=== PATIENT | female | born 1985 | race Caucasian/White ===

== ENCOUNTER 2018-01-22 14:26 | Emergency (ER) | payer MEDICARE ==
[~2018-01-22] VITALS: Ht 172.7 cm; Wt 73.9 kg
--- OUTSIDE RECORDS SUMMARY | 2018-01-22 14:29 | XMS REPORT ---
Author Organization Unknown Address [address] [place] [address] Phone [phone] Care Team Providers Care Ignition Mechanic Name Role Phone Sole Pierson Unavailable Unavailable Allergies Code Code System Name Reaction Severity Status Onset 845983 RxNorm Bactrim Hives Moderate to Severe Active 5933 RxNorm Iodine Anaphylaxis Severe Active 501715 RxNorm Tegretol Respiratory Distress Moderate to Severe Active 017178 RxNorm Tessalon Perles Anaphylaxis Moderate Active Medications Name Status Start Date Stop Date Ativan 0.5 mg tablet Take 1 tablet twice a day by oral route. Active Not available cyclobenzaprine 10 mg tablet Take 1/2 - 1 tablet po bid PRN and q bedtime may cause drowsiness Active Not available ibuprofen 600 mg tablet Take 1 tablet 3 times a day by oral route with meals. Active Not available inhaler,assist devices,access Active Not available Lexapro 20 mg tablet Take 1 tablet every day by oral route. Active Not available Medrol (Donaldo) 4 mg tablets in a dose pack take as directed Active Not available Zofran Active Not available Problems Name Status Onset Date Source Chronic Anxiety Active 01/10/2018 Diverticulitis Active 01/10/2018 Sciatica Active 01/10/2018 Procedures Notes: Patient indicated no previous surgeries on (01/10/2018) Lab Results None recorded. Past Encounters 01/10/2018 Mixed Anxiety and Depressive Disorder; Chronic Anxiety; Low Back Pain; Body Mass Index 20-24 - Normal; Acute Bronchitis Adia Pierson MD: [id number], [address], [place] [address] , Ph. Social History Smoking Status Former Smoker Vaccine List None recorded. Plan of Care Reminders Provider Appointments None recorded. Lab None recorded. Referral None recorded. Procedures None recorded. Surgeries None recorded. Imaging None recorded. Vitals Height Weight BMI Blood Pressure 5 ft 8 in 160 lbs 24.3 kg/m2 118/67 mm[Hg]
--- OUTSIDE RECORDS SUMMARY | 2018-01-22 14:29 | XMS REPORT | Clinical Summary ---
Author Author [facility] Organization [facility] Address Unknown Phone Unavailable Care Team Providers Care Pitching Coach Name Role Phone Asked, Pcp PCP Unavailable Allergies Active Allergy Reactions Severity Noted Date Comments Benzonatate 05/30/2016 Carbamazepine 05/30/2016 Propranolol Hives 04/15/2017 Sulfamethoxazole-Trimetho 05/30/2016 prim Ketorolac Rash Low 04/16/2017 Current Medications Prescription Sig. Disp. Refills Start End Date Status Date albuterol (VENTOLIN HFA) INHALE TWO (2) PUFF(S) BY Active 90 mcg/actuation inhaler MOUTH EVERY 4 TO 6 HOURS NEEDED. venlafaxine XR TAKE ONE (1) CAPSULE(S) Active (EFFEXOR-XR) 75 MG 24 hr BY MOUTH DAILY. capsule clonAZEPAM (KlonoPIN) 1 2 (two) times a day as Active MG tablet needed. risperiDONE (RisperDAL) 2 TAKE ONE (1) TABLET(S) BY Active MG tablet MOUTH TWICE A DAY. mirtazapine (REMERON) 15 Take 1 tablet by mouth Active MG tablet daily with dinner. metroNIDAZOLE (FLAGYL) Take 1 tablet (500 mg 21 tablet 0 04/16/20 500 MG tablet total) by mouth 3 (three) 17 17 times a day for 7 days. traMADol (ULTRAM) 50 mg Take 1 tablet (50 mg 15 tablet 0 04/16/20 tablet total) by mouth every 6 17 17 (six) hours as needed for moderate pain for up to 15 days. ondansetron (ZOFRAN) 4 MG Take 1 tablet (4 mg 120 tablet 0 04/16/20 05/16/20 tablet total) by mouth every 6 17 17 (six) hours for 30 days. amoxicillin-pot Take 1 tablet by mouth 20 tablet 0 07/28/20 08/07/ 20 clavulanate (AUGMENTIN) every 12 (twelve) hours 17 17 875-125 mg per tablet for 10 days. Active Problems Not on file Encounters Date Type Specialty Care Team Description 05/03/2017 Emergency Emergency Medicine Marcin Sandra Pseudoseizure (Primary - , Dx) 05/04/2017 05/03/2017 Emergency Emergency Medicine Marcin Sandra Diverticulitis of large JrMD Mendy intestine without perforation or abscess without bleeding (Primary Dx) 04/15/2017 Emergency Emergency Medicine Yoandy Adams, Pelvic pain in female - (Primary Dx); 04/16/2017 Cyst of left ovary; Colitis after 01/21/2017 Social History Tobacco Use Types Packs/Day Years Used Date Light Tobacco Smoker Comments: 1-2 cigarettes pd Alcohol Use Drinks/Week oz/Week Comments Yes occasionally Sex Assigned at Date Recorded Not on file Last Filed Vital Signs Vital Sign Reading Time Taken Blood Pressure 146/82 05/03/2017 11:41 PM CDT Pulse 86 05/03/2017 11:41 PM CDT Temperature 36.8 C (98.2 F) 05/03/2017 11:41 PM CDT Respiratory Rate 16 05/03/2017 11:41 PM CDT Oxygen Saturation 100% 05/03/2017 11:41 PM CDT Inhaled Oxygen - - Concentration Weight 77.3 kg (170 lb 8 oz) 05/03/2017 11:41 PM CDT Height 172.7 cm (5' 8") 05/03/2017 11:41 PM CDT Body Mass Index 25.92 05/03/2017 11:41 PM CDT Plan of Treatment Health Maintenance Due Date Last Done Comments PAP SMEAR 2006 INFLUENZA VACCINE 05/07/2018 Results * Urinalysis screen and microscopy, with reflex to culture (05/03/2017 8:53 PM) Only the most recent of 2 results within the time period is included. Component Value Ref Range Specimen site Clean catch Color, UA Yellow Appearance, UA Clear Specific gravity, UA >1.060 (H) 1.001 - 1.035 pH, UA 6.0 5.0 - 8.5 Protein, UA Negative Negative Glucose, UA Negative Negative Ketones, UA Negative Negative Bilirubin, UA Negative Negative Blood, UA Negative Negative Nitrite, UA Negative Negative Urobilinogen, UA Negative <2.0 Leukocyte esterase, UA Negative Negative Epithelial cells, UA Many /HPF WBC, UA 0-5 0 - 4 /HPF RBC, UA 6-10 (H) 0 - 2 /HPF Bacteria, UA Trace None seen Yeast, UA None seen Yeast with pseudohyphae, None seen UA Specimen Performing Laboratory Urine [facility] DEPARTMENT OF PATHOLOGY AND GENOMIC MEDICINE [id number] [place] [address] [place] [address] * Estimated GFR (05/03/2017 8:53 PM) Only the most recent of 2 results within the time period is included. Component Value Ref Range GFR Non Af Amer 72 mL/min/1.73 m2 GFR Af Amer 88 mL/min/1.73 m2 Comment: Chronic kidney disease: <60 mL/min/1.73m2 Kidney failure: <15 mL/min/1.73m2 The estimated GFR is calculated from the IDMS-traceable Modification of Diet in Renal Disease Equation. The accuracy of the calculation is poor when the creatinine is normal. Calculated values >90 mL/min/1.73m2 are not reported. This equation has not been validated in children (<18 years), women, the elderly (>70 years), or ethnic groups other than Caucasians and Americans. Specimen Performing Laboratory Plasma specimen [facility] DEPARTMENT PATHOLOGY AND GENOMIC MEDICINE [address] [place] [address] [place] [address] * Urine drugs of abuse screen (05/03/2017 8:53 PM) Component Value Ref Range Amphetamine screen, urine Negative Methamphetamine screen, Negative urine Barbiturate screen, urine Negative Benzodiazepine screen, Positive (A) urine Cocaine screen, urine Negative Methadone screen, urine Negative Opiates screen, urine Negative Phencyclidine screen, Negative urine Cannabinoid screen, urine Negative Tricyclic screen, urine Positive (A) Comment: Drug screen minimum concentration of detectability Amphetamines 1000 ng/mL Methamphetamines 1000 ng/mL Barbiturates 300 ng/mL Benzodiazepines 300 ng/mL Cocaine 300 ng/mL Methadone 3 00 ng/mL Opiates 300 ng/mL Phencyclidine 25 ng/mL Cannabinoids 50 ng/mL Tricyclics 1000 ng/mL Negative test results indicates presumptive evidence of lack of clinically significant drug concentration in this urine specimen. Positive test results are presumptive evidence of clinically significant drug concentration in this urine specimen. Testing performed for medical purposes only. Specimen Performing Laboratory Urine [facility] DEPARTMENT OF PATHOLOGY AND GENOMIC MEDICINE [address] [place] [address] [place] [address] * Partial thromboplastin time, activated (05/03/2017 8:53 PM) Component Value Ref Range PTT 31.8 23.0 - 36.0 sec Comment: PTT therapeutic range for unfractionated heparin is 61.0-112.0 seconds which corresponds to Anti-Xa 0.3-0.7 U/ml. Specimen Performing Laboratory Blood [facility] DEPARTMENT OF PATHOLOGY AND [facility] [address] [place] [address] * Prothrombin time with INR (05/03/2017 8:53 PM) Component Value Ref Range Prothrombin time 14.3 12.0 - 15.0 sec INR 1.1 Comment: The International Normalized Ratio (INR) is a therapeutic monitoring tool for patients who are stable on oral anticoagulant therapy. An INR of 2.0-3.0 is suggested for deep vein thrombosis/pulmonary embolism. Specimen Performing Laboratory Blood [facility] OF PATHOLOGY AND [facility] [address] [place] [address] * CBC with platelet and differential (05/03/2017 8:53 PM) Only the most recent of 2 results within the time period is included. Component Value Ref Range WBC 8.42 4.50 - 11.00 k/uL RBC 3.89 (L) 4.20 - 5.50 m/uL HGB 11.9 (L) 12.0 - 16.0 g/dL HCT 34.0 (L) 37.0 - 47.0 % MCV 87.4 82.0 - 100.0 fL MCH 30.6 27.0 - 34.0 pg MCHC 35.0 31.0 - 37.0 g/dL RDW - SD 38.5 37.0 - 55.0 fL MPV 9.5 8.8 - 13.2 fL Platelet count 239 150 - 400 k/uL Nucleated RBC 0.00 /100 WBC Neutrophils 59.3 39.0 - 69.0 % Lymphocytes 31.0 25.0 - 45.0 % Monocytes 8.0 0.0 - 10.0 % Eosinophils 1.1 0.0 - 5.0 % Basophils 0.5 0.0 - 1.0 % Immature granulocytes 0.1Comment: "Immature granulocytes" 0.0 - 1.0 % (promyelocytes, myelocytes, metamyelocytes) Specimen Performing Laboratory Blood [facility] DEPARTMENT OF PATHOLOGY [address] [place] [address] * hCG qualitative, serum screen (05/03/2017 8:53 PM) Only the most recent of 2 results within the time period is included. Component Value Ref Range hCG qualitative, serum NegativeComment: [id number] exp. 12/2018 Specimen Performing Laboratory Blood [address] [place] [address] * Lipase level (05/03/2017 8:53 PM) Only the most recent of 2 results within the time period is included. Component Value Ref Range Lipase 38 13 - 60 U/L Specimen Performing Laboratory Plasma specimen [address] [place] [address] * Lactic acid level (05/03/2017 8:53 PM) Only the most recent of 2 results within the time period is included. Component Value Ref Range Lactic acid 1.0 0.5 - 2.2 mmol/L Specimen Performing Laboratory Plasma specimen [address] [place] [address] * Amylase level (05/03/2017 8:53 PM) Only the most recent of 2 results within the time period is included. Component Value Ref Range Amylase 85 (H) 13 - 73 U/L Specimen Performing Laboratory Plasma specimen [address] [place] [address] * Comprehensive metabolic panel (05/03/2017 8:53 PM) Only the most recent of 2 results within the time period is included. Component Value Ref Range Sodium 137 135 - 148 mEq/L Potassium 3.7 3.5 - 5.0 mEq/L Chloride 102 98 - 112 mEq/L CO2 23 (L) 24 - 31 mEq/L Anion gap 12 7 - 15 mEq/L Comment: Starting from January , anion gap calculation no longer incorporates potassium. Please note the change. BUN 5 (L) 6 - 20 mg/dL Creatinine 0.9 0.5 - 0.9 mg/dL Glucose 101 (H) 65 - 99 mg/dL Calcium 8.7 8.3 - 10.2 mg/dL Protein 6.5 6.3 - 8.3 g/dL Comment: Parsons 4.6-7.0 g/dL 1 week 4.4-7.6 g/dL 7 months-1year 5.1-7.3 g/dL 1-2 years 5.6-7.5 g/dL >3 years 6.0-8.0 g/dL 18-150 6.3-8.3 g/dL Albumin 3.7 3.5 - 5.0 g/dL A/G ratio 1.3 0.7 - 3.8 Alkaline phosphatase 79 35 - 104 U/L AST 19 10 - 35 U/L ALT 20 5 - 50 U/L Total bilirubin 0.4 0.0 - 1.2 mg/dL Specimen Performing Laboratory Plasma specimen [facility] DEPARTMENT OF PATHOLOGY AND GENOMIC MEDICINE [address] [place] [address] * ECG ED Preliminary Interpretation - NOT AN ORDER (04/16/2017 4:25 AM) Narrative Yoandy Adams MD 04/16/20174:25 AM ECG ED Preliminary Interpretation - Not an Order Performed by: YOANDY ADAMS Authorized by: YOANDY ADAMS ECG reviewed by ED Physician in the absence of a nike athlete: yes Interpretation: Interpretation: normal Rate: ECG rate:91 ECG rate assessment: normal Rhythm: Rhythm: sinus rhythm Ectopy: Ectopy: none QRS: QRS axis:Normal QRS intervals:Normal Conduction: Conduction: normal ST segments: ST segments:Normal T waves: T waves: normal Comments: Interpretation: normal sinus rhythm.EKG performed on 1623 04/15/17 * US Pelvic Transabdominal (04/16/2017 1:59 AM) Specimen Performing Laboratory [address] [address] Narrative EXAMINATION:US PELVIC TRANSABDOMINAL CLINICAL HISTORY:Pain COMPARISON:None. TECHNIQUE:Transabdominal and endovaginal sonographic images of the pelvis were obtained. Grayscale, color Doppler, and spectral waveform analysis of the ovarian vessels was performed. IMPRESSION: Uterus measures 7.2 x 3.2 x 4.4 cm. Endometrial stripe measures 0.9 cm. Trace fluid is seen within the cervical canal. No masses are seen of the uterus. Right ovary measures 2.2 x 1.2 x 1.6 cm. Doppler evaluation reveals flow. Small follicles are seen within. Left ovary measures 3.1 x 2.9 x 2.8 cm. Doppler evaluation reveals flow. In the left ovary, a 2.6 x 2.2 x 2 cm, homogenous echogenic avascular structure is seen , suspicious for endometrioma. Hemorrhagic ovarian cyst is a consideration. Follow-up evaluation with MRI is recommended on nonemergent basis. No free peritoneal fluid. No distal ureteral hydronephrosis. [facility]-[id number] Procedure Note Interface, Radiology Results Incoming - 04/16/2017 2:15 AM CDT EXAMINATION: US PELVIC TRANSABDOMINAL CLINICAL HISTORY: Pain COMPARISON: None. TECHNIQUE:Transabdominal and endovaginal sonographic images of the pelvis were obtained. Grayscale, color Doppler, and spectral waveform analysis of the ovarian vessels was performed. IMPRESSION: Uterus measures 7.2 x 3.2 x 4.4 cm. Endometrial stripe measures 0.9 cm. Trace fluid is seen within the cervical canal. No masses are seen of the uterus. Right ovary measures 2.2 x 1.2 x 1.6 cm. Doppler evaluation reveals flow. Small follicles are seen within. Left ovary measures 3.1 x 2.9 x 2.8 cm. Doppler evaluation reveals flow. In the left ovary, a 2.6 x 2.2 x 2 cm, homogenous echogenic avascular structure is seen , suspicious for endometrioma. Hemorrhagic ovarian cyst is a consideration. Follow-up evaluation with MRI is recommended on nonemergent basis. No free peritoneal fluid. No distal ureteral hydronephrosis. [facility]-[id number] * US Pelvic Transvaginal (04/16/2017 1:59 AM) Specimen Performing Laboratory [facility] [id number] [place] [address] Narrative EXAMINATION:US PELVIC TRANSVAGINAL CLINICAL HISTORY:Pain COMPARISON:None. TECHNIQUE:Transabdominal and endovaginal sonographic images of the pelvis were obtained. Grayscale, color Doppler, and spectral waveform analysis of the ovarian vessels was performed. IMPRESSION: Uterus measures 7.2 x 3.2 x 4.4 cm. Endometrial stripe measures 0.9 cm. Trace fluid is seen within the cervical canal. No masses are seen of the uterus. Right ovary measures 2.2 x 1.2 x 1.6 cm. Doppler evaluation reveals flow. Small follicles are seen within. Left ovary measures 3.1 x 2.9 x 2.8 cm. Doppler evaluation reveals flow. In the left ovary, a 2.6 x 2.2 x 2 cm, homogenous echogenic avascular structure is seen , suspicious for endometrioma. Hemorrhagic ovarian cyst is a consideration. Follow-up evaluation with MRI is recommended on nonemergent basis. No free peritoneal fluid. No distal ureteral hydronephrosis. [facility]-[id number] Procedure Note Hm Interface, Radiology Results Incoming - 04/16/2017 2:15 AM CDT EXAMINATION: US PELVIC TRANSVAGINAL CLINICAL HISTORY: Pain COMPARISON: None. TECHNIQUE:Transabdominal and endovaginal sonographic images of the pelvis were obtained. Grayscale, color Doppler, and spectral waveform analysis of the ovarian vessels was performed. IMPRESSION: Uterus measures 7.2 x 3.2 x 4.4 cm. Endometrial stripe measures 0.9 cm. Trace fluid is seen within the cervical canal. No masses are seen of the uterus. Right ovary measures 2.2 x 1.2 x 1.6 cm. Doppler evaluation reveals flow. Small follicles are seen within. Left ovary measures 3.1 x 2.9 x 2.8 cm. Doppler evaluation reveals flow. In the left ovary, a 2.6 x 2.2 x 2 cm, homogenous echogenic avascular structure is seen , suspicious for endometrioma. Hemorrhagic ovarian cyst is a consideration. Follow-up evaluation with MRI is recommended on nonemergent basis. No free peritoneal fluid. No distal ureteral hydronephrosis. [facility]-[id number] * Troponin (04/15/2017 9:07 PM) Only the most recent of 2 results within the time period is included. Component Value Ref Range Troponin <0.01 0.00 - 0.60 ng/mL Comment: 0.11 - 1.49 ng/ml May indicate increased risk of acute coronary syndrome. >=1.5 ng/ml Consistent with acute myocardial infarction. The diagnostic value of a single normal or non-diagnostic result is questionable. Serial samples at 2-6 hour intervals are required to rule out acute myocardial injury. Specimen Performing Laboratory Plasma specimen [facility] AND GENOMIC MEDICINE [address] [place] [address] * ECG 12 lead (04/15/2017 4:23 PM) Component Value Ref Range Ventricular rate 91 Atrial rate 91 OK interval 138 QRSD interval 82 QT interval 330 QTC interval 405 P axis 1 53 QRS axis 1 49 T wave axis 17 EKG impression Normal sinus rhythm-Nonspecific ST and T wave abnormality-Abnormal ECG-No previous ECGs available- Specimen Performing Laboratory [address] [address] * Bilirubin direct (04/15/2017 4:07 PM) Component Value Ref Range Bilirubin direct 0.1 0.0 - 0.4 mg/dL Specimen Performing Laboratory Plasma specimen [facility] AND [facility]OMIC MEDICINE [address] [place] [address] after 01/21/2017 Insurance Payer Benefit Subscriber ID Type Phone Address Plan / Group MEDICAID MEDICAID xxxxxxxxx Medicaid
[2018-01-22 15:10] LABS: BASOPHILS % 0.3 % (0.0-1.0); EOSINOPHILS # (AUTO) 0.1 (0.0-0.4); EOSINOPHILS % 1.5 % (0.0-6.0); HEMOGLOBIN 13.6 g/dL (12.0-16.0); LYMPHOCYTES # (AUTO) 2.3 (1.0-3.2); LYMPHOCYTES % 30.1 % (18.0-39.1); MEAN CORPUSCULAR HEMOGLOBIN 30.2 pg (28-32); MEAN CORPUSCULAR HGB CONC 35.8 g/dL (31-35); MEAN CORPUSCULAR VOLUME 84.4 fL (81-99); MONOCYTES # (AUTO) 0.7 (0.2-0.8); MONOCYTES % 8.8 % (4.4-11.3); NEUTROPHILS # (AUTO) 4.5 (2.1-6.9); NEUTROPHILS % 59.2 % (38.7-80.0); PLATELET COUNT 271 x10e3/uL (140-360); RED CELL DISTRIBUTION WIDTH 11.5 % (11.7-14.4)
[2018-01-22 15:26] LABS: ALANINE AMINOTRANSFERASE 17 IU/L (0-55); ALBUMIN 3.6 g/dL (3.5-5.0); ALBUMIN/GLOBULIN RATIO 0.9 (0.8-2.0); ALKALINE PHOSPHATASE 70 IU/L (40-150); ANION GAP 11.5 mmol/L (8-16); BLOOD UREA NITROGEN 15 mg/dL (7-26); BUN/CREATININE RATIO 16 (6-25); CALCIUM 9.3 mg/dL (8.4-10.2); CARBON DIOXIDE 22 mmol/L (22-29); CHLORIDE 106 mmol/L (98-107); CREATININE, SERUM 0.96 mg/dL (0.57-1.11); EST GLOMERULAR FILTRATION RATE > 60 ML/MIN (60-); GLUCOSE 126 mg/dL (74-118); POTASSIUM 3.5 mmol/L (3.5-5.1); SODIUM 136 mmol/L (136-145)
[2018-01-22 15:31] LABS: CLARITY,URINE SL CLOUDY (CLEAR); COLOR,URINE YELLOW (YELLOW)
[2018-01-22 15:34] LABS: BACTERIA,URINE FEW /HPF; BILIRUBIN,URINE NEGATIVE (NEGATIVE); EPITHELIAL CELLS,URINE MODERATE /LPF; KETONES,URINE NEGATIVE (NEGATIVE); LEUKOCYTE ESTERASE ,URINE NEGATIVE (NEGATIVE); NITRITE,URINE NEGATIVE (NEGATIVE); PROTEIN,URINE DIPSTICK NEGATIVE (NEGATIVE); RBC,URINE 0-5 /HPF (0-5); URINE UROBILINOGEN 0.2 mg/dL (0.2 - 1); WBC,URINE (MAN) 0-5 /HPF (0-5)
[2018-01-22 15:35] LABS: PREGNANCY TEST, URINE NEGATIVE (NEGATIVE)
[2018-01-22] MEDS ORDERED: ONDANSETRON HCL INJ 2 MG/ML VIAL IV STA (17:02)
--- NOTE | 2018-01-22 17:49 | Diagnostic Imaging Report ---
PROCEDURE: CT ABDOMEN AND PELVIS WITHOUT CONTRAST TECHNIQUE: The abdomen and pelvis were scanned utilizing a multidetector helical scanner from the diaphragm to the lesser trochanter after the oral administration of water. No IV contrast was administered per protocol. Coronal and sagittal multiplanar reformations were obtained. COMPARISON: None. INDICATIONS: CALCULUS OF KIDNEY FINDINGS: ABSENCE OF INTRAVENOUS CONTRAST DECREASES SENSITIVITY FOR DETECTION OF FOCAL LESIONS AND VASCULAR PATHOLOGY. LOWER THORAX: Linear subsegmental atelectasis in the posterior bilateral lower lobes. HEPATOBILIARY: No focal hepatic lesions. No biliary ductal dilatation. Gallbladder is unremarkable. SPLEEN: No splenomegaly. PANCREAS: No focal masses or ductal dilatation. ADRENALS: No adrenal nodules. KIDNEYS/URETERS: Punctate nonobstructing calculus in the superior pole of left kidney (series 3, image 33 and coronal image 63). No other renal or any ureteral calculi. No hydronephrosis or obstruction. No contour abnormalities or significant perinephric stranding. PELVIC ORGANS/BLADDER: The bladder is unremarkable. Uterus unremarkable. No adnexal masses. PERITONEUM / RETROPERITONEUM: No free air or fluid. LYMPH NODES: No lymphadenopathy. VESSELS: Unremarkable for noncontrast exam. GI TRACT: No bowel dilation or evidence of obstruction. Moderate diverticulosis of the mid and distal descending and sigmoid colon, which is greater than expected for the patient's age. No evidence of diverticulitis. BONES AND SOFT TISSUES: No aggressive lytic lesion. Soft tissues are grossly unremarkable. IMPRESSION: 1. Punctate nonobstructing calculus in the superior pole of the left kidney. No other renal or ureteral calculi, hydronephrosis, or obstruction. 2. Moderate diverticulosis of the mid and distal descending and sigmoid colon, without diverticulitis, which is greater than expected for the patient's age. Alejandro Cabrera M.D. Dictated by: Alejandro Cabrera M.D. on 01/22/2018 at 17:50 Electronically approved by: Alejandro Cabrera M.D. on 01/22/2018 at 17:50
[2018-01-22] MEDS ORDERED: MORPHINE SULFATE 2 MG/ML SYR IV STA (17:56)
[2018-01-22 18:37] VITALS: BP 108/70
== END 2018-01-22 18:38 | disposition home or self-care (01) ==
LOC: ER 14:26
DX: R10.84 Generalized abdominal pain (principal); K57.31 Diverticulosis of large intestine without perforation or abscess with bleeding
CPT/HCPCS: 36415; 74176; 80053; 81001; 81025; 85025; 99284; J2270; J2405

== ENCOUNTER 2018-02-05 11:19 | Emergency (ER) | payer SELFPAY ==
[~2018-02-05] VITALS: Ht 172.7 cm; Wt 73.9 kg
--- OUTSIDE RECORDS SUMMARY | 2018-02-05 11:23 | XMS REPORT ---
Author Author [facility] Address Unknown Phone Unavailable Care Team Providers Care Communication Lecturer Name Role Phone MONTY AGUIAR Unavailable Unavailable Problems This patient has no known problems. Allergies, Adverse Reactions, Alerts This patient has no known allergies or adverse reactions. Medications This patient has no known medications. Results Test Description Test Time Test Comments Text Results Atomic Results Result Comments CT ABDOMEN/PELVIS WO [place] [address] Patient Name: JEFFERY ALVAREZ MR #: [id number] : 1985 Age/Sex: 32/F Req #: [id number] Adm Physician: Ordered by: SHELTON LOPEZ AUTOMOTIVE TIRE TECHNICIAN Report #: [id number] Location: ER Room/Bed: Procedure: [id number] CT/CT ABDOMEN/PELVIS WO Exam Date: 01/22/18 Exam Time: 1718 REPORT STATUS: Signed PROCEDURE: CT ABDOMEN AND PELVIS WITHOUT CONTRAST TECHNIQUE: The abdomen and pelvis were scanned utilizing a multidetector helical scanner from the diaphragm to the lesser trochanter after the oral administration of water. No IV contrast was administered per protocol. Coronal and sagittal multiplanar reformations were obtained. COMPARISON: None. INDICATIONS: CALCULUS OF KIDNEY FINDINGS: ABSENCE OF INTRAVENOUS CONTRAST DECREASES SENSITIVITY FOR DETECTION OF FOCAL LESIONS AND VASCULAR PATHOLOGY. LOWER THORAX: Linear subsegmental atelectasis in the posterior bilateral lower lobes. HEPATOBILIARY: No focal hepatic lesions. No biliary ductal dilatation. Gallbladder is unremarkable. SPLEEN: No splenomegaly. PANCREAS: No focal masses or ductal dilatation. ADRENALS: No adrenal nodules. KIDNEYS/URETERS: Punctate nonobstructing calculus in the superior pole of left kidney (series 3, image 33 and coronal image 63). No other renal or any ureteral calculi. No hydronephrosis or obstruction. No contour abnormalities or significant perinephric stranding. PELVIC ORGANS/ BLADDER: The bladder is unremarkable. Uterus unremarkable. No adnexal masses. PERITONEUM / RETROPERITONEUM: No free air or fluid. LYMPH NODES : No lymphadenopathy. VESSELS: Unremarkable for noncontrast exam. GI TRACT: No bowel dilation or evidence of obstruction. Moderate diverticulosis of the mid and distal descending and sigmoid colon, which is greater than expected for the patient's age. No evidence of diverticulitis. BONES AND SOFT TISSUES: No aggressive lytic lesion. Soft tissues are grossly unremarkable. IMPRESSION: 1. Punctate nonobstructing calculus in the superior pole of the left kidney. No other renal or ureteral calculi, hydronephrosis, or obstruction. 2. Moderate diverticulosis of the mid and distal descending and sigmoid colon, without diverticulitis, which is greater than expected for the patient's age. Robles Cabrera M.D. Dictated by: Robles Cabrera M.D. on 01/22/2018 at 17:50 Electronically approved by: Robles Cabrera M.D. on 01/22/2018 at 17:50 Dictated By: ROBLES CABRERA MD 49 Transcribed By: CARLOS on 01/22/181749 COPY TO: SHELTON LOPEZ NP
--- OUTSIDE RECORDS SUMMARY | 2018-02-05 11:23 | XMS REPORT | Clinical Summary ---
Author Author [facility]an Manda[facility] Organization [place] [facility] Address Unknown Phone Unavailable Care Team Providers Care Bead Builder Name Role Phone Asked, Pcp PCP Unavailable [...] 04/16/2017 Cyst of left ovary; Colitis after 02/04/2017 Social History Tobacco Use Types Packs/Day Years [...] None seen UA Specimen Performing Laboratory Urine [facility] DEPARTMENT OF PATHOLOGY AND GENOMIC MEDICINE [id number] [place] [address] [place] [address] * Estimated GFR (05/03/2017 8:53 PM) Only [...] and Americans. Specimen Performing Laboratory Plasma specimen [facility] DEPARTMENT PATHOLOGY AND GENOMIC MEDICINE [address] [place] [address] [place] [address] * Urine drugs of abuse screen (05/03/2017 [...] medical purposes only. Specimen Performing Laboratory Urine [facility] DEPARTMENT OF PATHOLOGY AND GENOMIC MEDICINE [address] [place] [address] [place] [address] * Partial thromboplastin time, activated (05/03/2017 8:53 PM) Component Value Ref Range PTT 31.8 23.0 - 36.0 sec Comment: PTT therapeutic range for unfractionated heparin is 61.0-112.0 seconds which corresponds to Anti-Xa 0.3-0.7 U/ml. Specimen Performing Laboratory Blood [facility] DEPARTMENT OF PATHOLOGY AND [facility] [address] [place] [address] * Prothrombin time with INR (05/03/2017 8:53 PM) Component Value Ref Range Prothrombin time 14.3 12.0 - 15.0 sec INR 1.1 Comment: The International Normalized Ratio (INR) is a therapeutic monitoring tool for patients who are stable on oral anticoagulant therapy. An INR of 2.0-3.0 is suggested for deep vein thrombosis/pulmonary embolism. Specimen Performing Laboratory Blood [facility] DEPARTMENT OF PATHOLOGY AND [facility] [address] [place] [address] * CBC with platelet and differential (05/03/2017 [...] Performing Laboratory Blood [facility] DEPARTMENT OF PATHOLOGY [address] [place] [address] * hCG qualitative, serum screen (05/03/2017 8:53 PM) Only the most recent of 2 results within the time period is included. Component Value Ref Range hCG qualitative, serum NegativeComment: [id number] exp. 12/2018 Specimen Performing Laboratory Blood [address] [place] [address] * Lipase level (05/03/2017 8:53 PM) Only the most recent of 2 results within the time period is included. Component Value Ref Range Lipase 38 13 - 60 U/L Specimen Performing Laboratory Plasma specimen [address] [place] [address] * Lactic acid level (05/03/2017 8:53 PM) Only the most recent of 2 results within the time period is included. Component Value Ref Range Lactic acid 1.0 0.5 - 2.2 mmol/L Specimen Performing Laboratory Plasma specimen [address] [place] [address] * Amylase level (05/03/2017 8:53 PM) Only the most recent of 2 results within the time period is included. Component Value Ref Range Amylase 85 (H) 13 - 73 U/L Specimen Performing Laboratory Plasma specimen [address] [place] [address] * Comprehensive metabolic panel (05/03/2017 8:53 PM) [...] Protein 6.5 6.3 - 8.3 g/dL Comment: [place] 4.6-7.0 g/dL 1 week 4.4-7.6 g/dL 7 [...] 1.2 mg/dL Specimen Performing Laboratory Plasma specimen [facility] DEPARTMENT OF PATHOLOGY AND GENOMIC MEDICINE [address] [place] [address] * ECG ED Preliminary Interpretation - NOT AN ORDER (04/16/2017 4:25 AM) Narrative Yoandy Adams MD 04/16/20174:25 AM ECG ED Preliminary Interpretation - Not an Order Performed by: YOANDY ADAMS Authorized by: YOANDY ADAMS ECG reviewed by ED Physician in the absence of a numerical control machine machinist: yes Interpretation: Interpretation: normal Rate: ECG rate:91 ECG rate assessment: normal Rhythm: Rhythm: sinus rhythm Ectopy: Ectopy: none QRS: QRS axis:Normal QRS intervals:Normal Conduction: Conduction: normal ST segments: ST segments:Normal T waves: T waves: normal Comments: Interpretation: normal sinus rhythm.EKG performed on 1623 04/15/17 * US Pelvic Transabdominal (04/16/2017 1:59 AM) Specimen Performing Laboratory [address] [address] Narrative EXAMINATION:US PELVIC TRANSABDOMINAL CLINICAL HISTORY:Pain COMPARISON:None. [...] free peritoneal fluid. No distal ureteral hydronephrosis. [facility]-[id number] Procedure Note Interface, Radiology Results Incoming - [...] free peritoneal fluid. No distal ureteral hydronephrosis. [facility]-[id number] * US Pelvic Transvaginal (04/16/2017 1:59 AM) Specimen Performing Laboratory [facility] [id number] [place] [address] Narrative EXAMINATION:US PELVIC TRANSVAGINAL CLINICAL HISTORY:Pain COMPARISON:None. [...] free peritoneal fluid. No distal ureteral hydronephrosis. [facility]-[id number] Procedure Note Hm Interface, Radiology Results Incoming [...] free peritoneal fluid. No distal ureteral hydronephrosis. [facility]-[id number] * Troponin (04/15/2017 9:07 PM) Only the [...] myocardial injury. Specimen Performing Laboratory Plasma specimen [facility] DEPARTMENT OF PATHOLOGY AND GENOMIC MEDICINE [address] [place] [address] * ECG 12 lead (04/15/2017 4:23 PM) Component Value Ref Range Ventricular rate 91 Atrial rate 91 AR interval 138 QRSD interval 82 QT interval 330 QTC interval 405 P axis 1 53 QRS axis 1 49 T wave axis 17 EKG impression Normal sinus rhythm-Nonspecific ST and T wave abnormality-Abnormal ECG-No previous ECGs available- Specimen Performing Laboratory [address] [address] * Bilirubin direct (04/15/2017 4:07 PM) Component Value Ref Range Bilirubin direct 0.1 0.0 - 0.4 mg/dL Specimen Performing Laboratory Plasma specimen [facility] DEPARTMENT OF PATHOLOGY AND GENOMIC MEDICINE [address] [place] [address] after 02/04/2017 Insurance Payer Benefit Subscriber ID Type Phone Address Plan / Group MEDICAID MEDICAID xxxxxxxxx Medicaid Home: [id number] [facility] [address] [place] [id number]
--- OUTSIDE RECORDS SUMMARY | 2018-02-05 11:23 | XMS REPORT | Continuity of Care Document ---
Author Author [facility] Organization [facility] Address [address] [place] [place] [address] Phone Unavailable Care Team Providers Care Regrinder Name Role Phone NO, PCP PCP Unavailable Advance Directives Directive Response Recorded Date/Time Does the patient have an advance directive? No 01/22/18 3:38pm If yes, is advance directive on file with [facility]? No 01/22/18 3:39pm If not on file with [facility] will patient provide a copy? No 01/22/18 3:39pm Do you have a Directive to Physician? No 01/22/18 3:39pm Do you have a Medical Power of Event Manager? No 01/22/18 3:39pm Do you have an out of hospital Do Not Resuscitate Order? No 01/22/18 3:39pm Do you have any special needs we should be aware of? No 01/22/18 3:39pm Do you have a support person here with you today? Yes 01/22/18 3:39pm Did patient receive Notice of Privacy Practices? Yes 01/22/18 3:39pm Did patient receive patient rights and responsibilities? Yes 01/22/18 3:39pm Problems No problem information available. Medications No medication information available. Social History Smoking Status Start Date Stop Date Former smoker Hospital Discharge Instructions No hospital discharge instruction information available. Plan of Care Discharge Date 01/22/18 6:38pm Disposition HOME, SELF-CARE Condition at Discharge Stable Instructions/Education Provided Abdominal Pain - Adult Forms Provided Work/School Excuse Prescriptions See Medication Section Referrals JERI WHELAN MD Address: [address] [place] [id number] Additional Instructions/Education Call for follow up appointment to see your medical provider or the referral listed. Take over the counter Motrin or Tylenol medication as needed for comfort. If prescribed pain medication on discharge, take the pain medication as prescribed and adhere to the warnings given for pain medication such as no swimming, driving operating heavy machinery, drinking or mixing with other medications that can interact with the narcotic. discussed at the bedside, drink fluids, rest and return to the emergency department for any fever, shortness of breath, chest pain, abdominal pain, trouble handling oral secretions or any new concerns. Functional Status No functional status information available. Allergies, Adverse Reactions, Alerts Allergen Type Severity Reaction Status Last Updated Iodine Allergy Severe chest pressure, SOB Active 01/22/18 Benzonatate Allergy Intermediate rash, itchy throat Active 01/22/18 Sulfamethoxazole Allergy Mild rash, itchy throat Active 01/22/18 Trimethoprim Allergy Mild rash, itchy throat Active 01/22/18 Immunizations No immunization information available. Vital Signs Acute Vital Signs Vital Response Date/Time Pulse Pulse Rate (adult) 78 bpm (60 - 90) 01/22/2018 6:37pm Respiratory Rate 16 bpm (12 - 24) 01/22/2018 6:37pm Blood Pressure 108/70 mm Hg 01/22/2018 6:37pm Height 5 ft 8 in 01/22/2018 2:29pm Weight 163 lb 01/22/2018 2:29pm Body Mass Index 24.8 kg/m^2 01/22/2018 2:29pm Results Laboratory Results Test Name Result Units Flags Reference Collection Date/Time Result Date/ Time Comments White Blood Count 7.51 x10e3/uL 4.8-10.8 01/22/2018 2:37pm 01/22/2018 3 :13pm Red Blood Count 4.50 x10e6/uL 3.6-5.1 01/22/2018 2:37pm 01/22/2018 3: 13pm Hemoglobin 13.6 g/dL 12.0-16.0 01/22/2018 2:37pm 01/22/2018 3:13pm Hematocrit 38.0 % 34.2-44.1 01/22/2018 2:37pm 01/22/2018 3:13pm Mean Corpuscular Volume 84.4 fL 81-99 01/22/2018 2:37pm 01/22/2018 3: 13pm Mean Corpuscular Hemoglobin 30.2 pg 28-32 01/22/2018 2:37pm 01/22/2018 3:13pm Mean Corpuscular Hemoglobin Concent 35.8 g/dL H 31-35 01/22/2018 2:37pm 01/22/2018 3:13pm Red Cell Distribution Width 11.5 % L 11.7-14.4 01/22/2018 2:37pm 2017 3:13pm Platelet Count 271 x10e3/uL 140-360 01/22/2018 2:37pm 01/22/2018 3: 13pm Neutrophils (%) (Auto) 59.2 % 38.7-80.0 01/22/2018 2:37pm 01/22/2018 3: 13pm Lymphocytes (%) (Auto) 30.1 % 18.0-39.1 01/22/2018 2:37pm 01/22/2018 3: 13pm Monocytes (%) (Auto) 8.8 % 4.4-11.3 01/22/2018 2:37pm 01/22/2018 3: 13pm Eosinophils (%) (Auto) 1.5 % 0.0-6.0 01/22/2018 2:37pm 01/22/2018 3: 13pm Basophils (%) (Auto) 0.3 % 0.0-1.0 01/22/2018 2:37pm 01/22/2018 3:13pm IM GRANULOCYTES % 0.1 % 0.0-1.0 01/22/2018 2:37pm 01/22/2018 3:13pm Neutrophils # (Auto) 4.5 2.1-6.9 01/22/2018 2:37pm 01/22/2018 3:13pm Lymphocytes # (Auto) 2.3 1.0-3.2 01/22/2018 2:37pm 01/22/2018 3:13pm Monocytes # (Auto) 0.7 0.2-0.8 01/22/2018 2:37pm 01/22/2018 3:13pm Eosinophils # (Auto) 0.1 0.0-0.4 01/22/2018 2:37pm 01/22/2018 3:13pm Basophils # (Auto) 0.0 0.0-0.1 01/22/2018 2:37pm 01/22/2018 3:13pm Absolute Immature Granulocyte (auto 0.01 x10e3/uL 0-0.1 01/22/2018 2: 37pm 01/22/2018 3:13pm Urine Color YELLOW YELLOW 01/22/2018 2:37pm 01/22/2018 3:35pm Urine Clarity SL CLOUDY CLEAR 01/22/2018 2:37pm 01/22/2018 3:35pm Urine Specific [place] 1.020 1.010-1.025 01/22/2018 2:37pm 2017 3:35pm Urine pH 6 5 - 7 01/22/2018 2:37pm 01/22/2018 3:35pm Urine Leukocyte Esterase NEGATIVE NEGATIVE 01/22/2018 2:37pm 2017 3:35pm Urine Nitrite NEGATIVE NEGATIVE 01/22/2018 2:37pm 01/22/2018 3:35pm Urine Protein NEGATIVE NEGATIVE 01/22/2018 2:37pm 01/22/2018 3:35pm Urine Glucose (UA) NEGATIVE NEGATIVE 01/22/2018 2:37pm 01/22/2018 3: 35pm Urine Ketones NEGATIVE NEGATIVE 01/22/2018 2:37pm 01/22/2018 3:35pm Urine Urobilinogen 0.2 mg/dL 0.2 - 1 01/22/2018 2:37pm 01/22/2018 3: 35pm Urine Bilirubin NEGATIVE NEGATIVE 01/22/2018 2:37pm 01/22/2018 3: 35pm Urine Blood NEGATIVE NEGATIVE 01/22/2018 2:37pm 01/22/2018 3:35pm Urine WBC 0-5 /HPF 0-5 01/22/2018 2:37pm 01/22/2018 3:35pm Urine RBC 0-5 /HPF 0-5 01/22/2018 2:37pm 01/22/2018 3:35pm Urine Bacteria FEW /HPF NONE 01/22/2018 2:37pm 01/22/2018 3:35pm Urine Epithelial Cells MODERATE /LPF NONE 01/22/2018 2:37pm 01/22/2018 3:35pm Urine Test NEGATIVE NEGATIVE 01/22/2018 2:37pm 01/22/2018 3 :35pm Sodium Level 136 mmol/L 136-145 01/22/2018 2:3701/22/2018 3:27pm Potassium Level 3.5 mmol/L 3.5-5.1 01/22/2018 2:37pm 01/22/2018 3:27pm Chloride Level 106 mmol/L 98-107 01/22/2018 2:37pm 01/22/2018 3:27pm Carbon Dioxide Level 22 mmol/L 22-29 01/22/2018 2:37pm 01/22/2018 3: 27pm Anion Gap 11.5 mmol/L 8-16 01/22/2018 2:3701/22/2018 3:27pm Blood Urea Nitrogen 15 mg/dL 7-26 01/22/2018 2:3701/22/2018 3:27pm Creatinine 0.96 mg/dL 0.57-1.11 01/22/2018 2:37pm 01/22/2018 3:27pm BUN/Creatinine Ratio 16 6-25 01/22/2018 2:37pm 01/22/2018 3:27pm Estimat Glomerular Filtration Rate > 60 ML/MIN 60- 01/22/2018 2:37 3:27pm Ranges were taken from the National Kidney Disease Education Program and the National Kid[employer] Foundation literature. Reference ranges: 60 or greater: Normal 16-59 (for 3 consecutive months): Chronic kidney disease 15 or less: Kidney failure Glucose Level 126 mg/dL H 74-118 01/22/2018 2:37pm 01/22/2018 3:27pm Calcium Level 9.3 mg/dL 8.4-10.2 01/22/2018 2:3701/22/2018 3:27pm Total Bilirubin 0.4 mg/dL 0.2-1.2 01/22/2018 2:3701/22/2018 3:27pm Aspartate Amino Transf (AST/SGOT) 17 IU/L 5-34 01/22/2018 2:37pm 2017 3:27pm Alanine Aminotransferase (ALT/SGPT) 17 IU/L 0-55 01/22/2018 2:37pm 3:27pm Total Protein 7.5 g/dL 6.5-8.1 01/22/2018 2:37pm 01/22/2018 3:27pm Albumin 3.6 g/dL 3.5-5.0 01/22/2018 2:37pm 01/22/2018 3:27pm Globulin 3.9 g/dL H 2.3-3.5 01/22/2018 2:37pm 01/22/2018 3:27pm Albumin/Globulin Ratio 0.9 0.8-2.0 01/22/2018 2:37pm 01/22/2018 3: 27pm Alkaline Phosphatase 70 IU/L 40-150 01/22/2018 2:37pm 01/22/2018 3: 27pm Procedures Procedure Status Date Provider(s) CT of abdomen and pelvis without contrast Active 01/22/18 SHELTON LOPEZ [employer] SALES REPRESENTATIVE Encounters Encounter Location Arrival/Admit Date Discharge/Depart Date Attending Provider Departed Emergency Room [facility] 01/22/18 2:26pm 6:38pm MONTY AGUIAR MD
[2018-02-05 12:15] LABS: CLARITY,URINE CLEAR (CLEAR); COLOR,URINE YELLOW (YELLOW)
[2018-02-05 12:16] LABS: BILIRUBIN,URINE NEGATIVE (NEGATIVE); KETONES,URINE NEGATIVE (NEGATIVE); LEUKOCYTE ESTERASE ,URINE NEGATIVE (NEGATIVE); NITRITE,URINE NEGATIVE (NEGATIVE); PROTEIN,URINE DIPSTICK NEGATIVE (NEGATIVE); URINE UROBILINOGEN 0.2 mg/dL (0.2 - 1)
[2018-02-05] MEDS ORDERED: SODIUM CHLORIDE 0.9% 1000ML 1,000 ML IV STA (12:23)
[2018-02-05] MEDS ORDERED: SODIUM CHLORIDE 0.9% 1000ML 1,000 ML ONE (12:25)
[2018-02-05 12:32] LABS: EPITHELIAL CELLS,URINE FEW /LPF
[2018-02-05 12:37] LABS: BASOPHILS % 0.5 % (0.0-1.0); EOSINOPHILS # (AUTO) 0.1 (0.0-0.4); EOSINOPHILS % 1.2 % (0.0-6.0); HEMATOCRIT 43.9 % (34.2-44.1); HEMOGLOBIN 15.2 g/dL (12.0-16.0); LYMPHOCYTES # (AUTO) 1.9 (1.0-3.2); LYMPHOCYTES % 25.2 % (18.0-39.1); MEAN CORPUSCULAR HEMOGLOBIN 29.9 pg (28-32); MEAN CORPUSCULAR HGB CONC 34.6 g/dL (31-35); MEAN CORPUSCULAR VOLUME 86.2 fL (81-99); MONOCYTES # (AUTO) 0.6 (0.2-0.8); MONOCYTES % 7.5 % (4.4-11.3); NEUTROPHILS % 65.3 % (38.7-80.0); PLATELET COUNT 257 x10e3/uL (140-360); RED BLOOD COUNT 5.09 x10e6/uL (3.6-5.1); RED CELL DISTRIBUTION WIDTH 12.2 % (11.7-14.4)
[2018-02-05 12:59] LABS: ALANINE AMINOTRANSFERASE 14 IU/L (0-55); ALBUMIN 4.3 g/dL (3.5-5.0); ALKALINE PHOSPHATASE 79 IU/L (40-150); ANION GAP 13.2 mmol/L (8-16); BLOOD UREA NITROGEN 13 mg/dL (7-26); BUN/CREATININE RATIO 13 (6-25); CALCIUM 10.1 mg/dL (8.4-10.2); CARBON DIOXIDE 22 mmol/L (22-29); CHLORIDE 108 mmol/L (98-107); CREATININE, SERUM 0.97 mg/dL (0.57-1.11); EST GLOMERULAR FILTRATION RATE > 60 ML/MIN (60-); GLUCOSE 97 mg/dL (74-118); MAGNESIUM 1.9 MG/DL (1.3-2.1); POTASSIUM 4.2 mmol/L (3.5-5.1); SODIUM 139 mmol/L (136-145)
[2018-02-05] MEDS ORDERED: KETOROLAC TROMETHAMINE 30 MG/ML VIAL IV STA (13:17)
--- NOTE | 2018-02-05 14:29 | Diagnostic Imaging Report ---
PROCEDURE: CT ABDOMEN AND PELVIS WITHOUT CONTRAST TECHNIQUE: The abdomen and pelvis were scanned utilizing a multidetector helical scanner from the diaphragm to the lesser trochanter. No IV contrast was administered as per physician request. Coronal and sagittal multiplanar reformations were obtained. COMPARISON: None. INDICATIONS: FLANK PAIN FINDINGS: ABSENCE OF INTRAVENOUS CONTRAST DECREASES SENSITIVITY FOR DETECTION OF FOCAL LESIONS AND VASCULAR PATHOLOGY. LOWER THORAX: Normal. HEPATOBILIARY: No focal hepatic lesions. No biliary ductal dilatation. SPLEEN: No splenomegaly. PANCREAS: No focal masses or ductal dilatation. ADRENALS: No adrenal nodules. KIDNEYS/URETERS: No hydronephrosis, stones, or solid mass lesions. PELVIC ORGANS/BLADDER: Unremarkable. PERITONEUM / RETROPERITONEUM: No free air or fluid. LYMPH NODES: No lymphadenopathy. VESSELS: Unremarkable. GI TRACT: No distention or wall thickening. Normal appendix. Moderate amount of retained feces limits intraluminal evaluation of the colon. BONES AND SOFT TISSUES: Unremarkable. IMPRESSION: No acute abnormality of the abdomen and pelvis. Dictated by: Shelton Dumont M.D. on 02/05/2018 at 14:30 Electronically approved by: Shelton Dumont M.D. on 02/05/2018 at 14:30
[2018-02-05] MEDS ORDERED: HYDROMORPHONE 1MG/1ML INJ IV STA (14:58)
[2018-02-05 15:35] VITALS: BP 104/77
== END 2018-02-05 15:27 | disposition home or self-care (01) ==
LOC: ER 11:19
DX: R30.0 Dysuria (principal); R11.2 Nausea with vomiting, unspecified; R10.13 Epigastric pain
CPT/HCPCS: 36415; 74176; 80053; 81001; 81025; 83735; 85025; 99284; J1885; J7030

== ENCOUNTER 2021-03-22 18:16 | Emergency (ER) | payer SELFPAY ==
[~2021-03-22] VITALS: Ht 172.7 cm; Wt 73.9 kg
[2021-03-22] MEDS ORDERED: ASPIRIN 81 MG CHEW TAB PO ONE (18:30)
[2021-03-22] MEDS ORDERED: KETOROLAC TROMETHAMINE 30 MG/ML VIAL IV STA (18:51)
[2021-03-22 18:52] LABS: BASOPHILS % 0.5 % (0.0-1.0); EOSINOPHILS # (AUTO) 0.2 (0.0-0.4); HEMATOCRIT 37.1 % (34.2-44.1); HEMOGLOBIN 12.6 g/dL (12.0-16.0); LYMPHOCYTES # (AUTO) 3.1 (1.0-3.2); LYMPHOCYTES % 35.9 % (18.0-39.1); MEAN CORPUSCULAR HEMOGLOBIN 29.9 pg (28-32); MEAN CORPUSCULAR VOLUME 88.1 fL (81-99); MONOCYTES % 11.5 % (4.4-11.3); NEUTROPHILS # (AUTO) 4.2 (2.1-6.9); PLATELET COUNT 259 x10e3/uL (140-360); RED BLOOD COUNT 4.21 x10e6/uL (3.6-5.1); RED CELL DISTRIBUTION WIDTH 12.3 % (11.7-14.4)
[2021-03-22] MEDS ORDERED: DEXAMETHASONE SOD PHOS 10 MG/1 ML VIAL IV ONE (19:00)
[2021-03-22] MEDS ORDERED: SODIUM CHLORIDE 0.9% 1000ML 1,000 ML IV ONE (19:00)
[2021-03-22 19:19] LABS: ALANINE AMINOTRANSFERASE 55 IU/L (0-55); ALBUMIN 4.1 g/dL (3.5-5.0); ALBUMIN/GLOBULIN RATIO 1.4 (0.8-2.0); ALKALINE PHOSPHATASE 65 IU/L (40-150); ANION GAP 12.7 mmol/L (8-16); BLOOD UREA NITROGEN 9 mg/dL (7-26); BUN/CREATININE RATIO 11 (6-25); CALCIUM 8.9 mg/dL (8.4-10.2); CARBON DIOXIDE 22 mmol/L (22-29); CHLORIDE 108 mmol/L (98-107); EST GLOMERULAR FILTRATION RATE > 60 ML/MIN (60-); GLUCOSE 100 mg/dL (74-118); POTASSIUM 3.7 mmol/L (3.5-5.1); SODIUM 139 mmol/L (136-145)
[2021-03-22 19:21] LABS: CREATINE KINASE 7576 IU/L (29-168)
[2021-03-22] MEDS ORDERED: SODIUM CHLORIDE 0.9% 1000ML 1,000 ML IV STA ×2 (19:26)
[2021-03-23 00:13] LABS: CREATINE KINASE 5039 IU/L (29-168)
[2021-03-23] MEDS ORDERED: SODIUM CHLORIDE 0.9% 1000ML 2,000 ML ONE (00:37)
[2021-03-23] MEDS ORDERED: SODIUM CHLORIDE 0.9% 1000ML 1,000 ML IV ONE ×2 (00:45)
[2021-03-23 04:51] LABS: CREATINE KINASE 3510 IU/L (29-168)
[2021-03-23 05:01] VITALS: BP 107/72
== END 2021-03-23 05:14 | disposition home or self-care (01) ==
LOC: ER 18:30
DX: R07.9 Chest pain, unspecified (principal); R10.13 Epigastric pain; R79.89 Other specified abnormal findings of blood chemistry; N20.0 Calculus of kidney; M79.605 Pain in left leg; M79.604 Pain in right leg; F41.9 Anxiety disorder, unspecified; F32.9 Major depressive disorder, single episode, unspecified
CPT/HCPCS: 36415; 71045; 71250; 80053; 82550; 82553; 84484; 84702; 85025; 93005; 99284; J1100; J1885; J7030 ×2

== ENCOUNTER 2021-03-27 04:52 | Emergency (ER) | payer SELFPAY ==
[~2021-03-27] VITALS: Ht 172.7 cm; Wt 73.9 kg
[2021-03-27 05:18] LABS: BASOPHILS % 0.3 % (0.0-1.0); EOSINOPHILS # (AUTO) 0.2 (0.0-0.4); EOSINOPHILS % 2.1 % (0.0-6.0); HEMATOCRIT 42.8 % (34.2-44.1); HEMOGLOBIN 14.5 g/dL (12.0-16.0); LYMPHOCYTES # (AUTO) 2.9 (1.0-3.2); LYMPHOCYTES % 28.9 % (18.0-39.1); MEAN CORPUSCULAR HEMOGLOBIN 30.1 pg (28-32); MEAN CORPUSCULAR HGB CONC 33.9 g/dL (31-35); MEAN CORPUSCULAR VOLUME 88.8 fL (81-99); MONOCYTES # (AUTO) 1.2 (0.2-0.8); MONOCYTES % 11.5 % (4.4-11.3); NEUTROPHILS # (AUTO) 5.8 (2.1-6.9); NEUTROPHILS % 56.6 % (38.7-80.0); PLATELET COUNT 245 x10e3/uL (140-360); RED BLOOD COUNT 4.82 x10e6/uL (3.6-5.1); RED CELL DISTRIBUTION WIDTH 12.4 % (11.7-14.4)
[2021-03-27] MEDS ORDERED: KETOROLAC TROMETHAMINE 30 MG/ML VIAL IV STA (05:23)
[2021-03-27 05:31] LABS: LIPASE 23 U/L (8-78)
[2021-03-27 05:32] LABS: ALANINE AMINOTRANSFERASE 36 IU/L (0-55); ALBUMIN 3.9 g/dL (3.5-5.0); ALBUMIN/GLOBULIN RATIO 1.1 (0.8-2.0); ALKALINE PHOSPHATASE 80 IU/L (40-150); ANION GAP 14.4 mmol/L (8-16); BLOOD UREA NITROGEN 13 mg/dL (7-26); BUN/CREATININE RATIO 14 (6-25); CALCIUM 8.8 mg/dL (8.4-10.2); CARBON DIOXIDE 20 mmol/L (22-29); CHLORIDE 109 mmol/L (98-107); EST GLOMERULAR FILTRATION RATE > 60 ML/MIN (60-); GLUCOSE 116 mg/dL (74-118); POTASSIUM 3.4 mmol/L (3.5-5.1); SODIUM 140 mmol/L (136-145)
[2021-03-27] MEDS: ONDANSETRON HCL INJ 2MG/ML 2ML 2 MG/ML VIAL IV STA (05:39)
[2021-03-27] MEDS: SODIUM CHLORIDE 0.9% 1000ML 1,000 ML IV SCH (05:39)
[2021-03-27 05:51] LABS: CLARITY,URINE CLEAR (CLEAR); COLOR,URINE YELLOW (YELLOW)
[2021-03-27 05:52] LABS: KETONES,URINE NEGATIVE (NEGATIVE); LEUKOCYTE ESTERASE ,URINE SMALL (NEGATIVE); NITRITE,URINE NEGATIVE (NEGATIVE); PROTEIN,URINE DIPSTICK NEGATIVE (NEGATIVE); URINE UROBILINOGEN 0.2 mg/dL (0.2 - 1)
[2021-03-27 06:23] LABS: BACTERIA,URINE MODERATE /HPF; EPITHELIAL CELLS,URINE FEW /LPF; RBC,URINE 0-5 /HPF (0-5)
[2021-03-27] MEDS: FENTANYL CITRATE/PF 100MCG/2 ML INJ IV PRN (06:39)
[2021-03-27] MEDS ORDERED: AUGMENTIN 875-1 EACH PO (06:45)
[2021-03-27] MEDS ORDERED: ONDANSETRON ODT4 MG PO (06:49)
[2021-03-27] MEDS ORDERED: CEPHALEXIN500 MG PO (06:49)
[2021-03-27 07:03] VITALS: BP 132/65
== END 2021-03-27 07:05 | disposition home or self-care (01) ==
LOC: ER 05:13
DX: R10.32 Left lower quadrant pain (principal); N39.0 Urinary tract infection, site not specified; K92.1 Melena; M06.9 Rheumatoid arthritis, unspecified; J45.909 Unspecified asthma, uncomplicated; F41.9 Anxiety disorder, unspecified; Z87.19 Personal history of other diseases of the digestive system
CPT/HCPCS: 36415; 74176; 80053; 81001; 83690; 84702; 85025; 87086; 99284; C9113; J2405; J3010; J7030; J1885

== ENCOUNTER 2021-04-13 18:29 | Emergency (ER) | payer SELFPAY ==
[~2021-04-13] VITALS: Ht 172.7 cm; Wt 73.9 kg
[~2021-04-13 18:29] MED LIST: AUGMENTIN 875-1 EACH PO; CEPHALEXIN500 MG PO; ONDANSETRON ODT4 MG PO
[2021-04-13 18:56] LABS: CLARITY,URINE CLEAR (CLEAR); COLOR,URINE YELLOW (YELLOW); KETONES,URINE NEGATIVE (NEGATIVE); LEUKOCYTE ESTERASE ,URINE NEGATIVE (NEGATIVE); NITRITE,URINE NEGATIVE (NEGATIVE); PROTEIN,URINE DIPSTICK NEGATIVE (NEGATIVE); URINE UROBILINOGEN 0.2 mg/dL (0.2 - 1)
[2021-04-13 19:07] LABS: BACTERIA,URINE FEW /HPF; EPITHELIAL CELLS,URINE MODERATE /LPF; RBC,URINE 0-5 /HPF (0-5)
== END 2021-04-13 20:12 | disposition home or self-care (01) ==
LOC: ER 18:43
DX: J06.9 Acute upper respiratory infection, unspecified (principal); F17.210 Nicotine dependence, cigarettes, uncomplicated; Z20.822 Contact with and (suspected) exposure to COVID-19; F41.9 Anxiety disorder, unspecified; F32.9 Major depressive disorder, single episode, unspecified
CPT/HCPCS: 71045; 81001; 99283; U0002

== ENCOUNTER 2021-07-01 12:55 | Emergency (ER) | payer SELFPAY ==
[~2021-07-01] VITALS: Ht 172.7 cm; Wt 73.9 kg
[~2021-07-01 12:55] MED LIST changes: +FLOMAX0.4 MG PO
[2021-07-01] MEDS ORDERED: SODIUM CHLORIDE 0.9% 1000ML 1,000 ML IV STA (13:10)
[2021-07-01] MEDS ORDERED: DIPHENHYDRAMINE HCL INJ 50 MG/ML VIAL IV ONE (14:00)
[2021-07-01] MEDS ORDERED: METOCLOPRAMIDE HCL 10 MG/2ML VIAL IV ONE (14:00)
[2021-07-01 15:14] VITALS: BP 125/75
== END 2021-07-01 15:20 | disposition home or self-care (01) ==
LOC: ER 13:28
DX: G43.909 Migraine, unspecified, not intractable, without status migrainosus (principal); J45.909 Unspecified asthma, uncomplicated; M06.9 Rheumatoid arthritis, unspecified; F41.9 Anxiety disorder, unspecified; Z87.19 Personal history of other diseases of the digestive system
CPT/HCPCS: 99283; J1200; J2765; J7030

== ENCOUNTER 2022-02-06 13:13 | Emergency (ER) | payer MEDICARE ==
[~2022-02-06] VITALS: Ht 172.7 cm; Wt 73.9 kg
[2022-02-06] MEDS ORDERED: LACTATED RINGER'S 1,000 ML INJ STA (13:39)
[2022-02-06] MEDS ORDERED: ACETAMINOPHEN 325 MG TAB PO ONE (13:45)
[2022-02-06] MEDS ORDERED: METOCLOPRAMIDE HCL 10 MG/2ML VIAL IV ONE (13:45)
[2022-02-06 13:57] LABS: BASOPHILS % 0.4 % (0.0-1.0); EOSINOPHILS # (AUTO) 0.1 (0.0-0.4); EOSINOPHILS % 1.1 % (0.0-6.0); HEMATOCRIT 41.5 % (34.2-44.1); HEMOGLOBIN 14.2 g/dL (12.0-16.0); LYMPHOCYTES # (AUTO) 2.7 (1.0-3.2); LYMPHOCYTES % 29.6 % (18.0-39.1); MEAN CORPUSCULAR HEMOGLOBIN 30.7 pg (28-32); MEAN CORPUSCULAR HGB CONC 34.2 g/dL (31-35); MEAN CORPUSCULAR VOLUME 89.6 fL (81-99); MONOCYTES # (AUTO) 0.8 (0.2-0.8); MONOCYTES % 8.8 % (4.4-11.3); NEUTROPHILS # (AUTO) 5.4 (2.1-6.9); NEUTROPHILS % 59.7 % (38.7-80.0); PLATELET COUNT 247 x10e3/uL (140-360); RED BLOOD COUNT 4.63 x10e6/uL (3.6-5.1); RED CELL DISTRIBUTION WIDTH 12.2 % (11.7-14.4)
[2022-02-06 14:15] LABS: ALBUMIN 3.7 g/dL (3.5-5.0); ANION GAP 10.7 mmol/L (8-16); CALCIUM 8.8 mg/dL (8.4-10.2); CREATININE, SERUM 0.85 mg/dL (0.57-1.11); POTASSIUM 3.7 mmol/L (3.5-5.1)
[2022-02-06] MEDS ORDERED: ONDANSETRON ODT4 MG PO (14:30)
== END 2022-02-06 14:52 | disposition home or self-care (01) ==
LOC: ER 13:16
DX: R05.9 Cough, unspecified (principal); J06.9 Acute upper respiratory infection, unspecified; G43.909 Migraine, unspecified, not intractable, without status migrainosus; Z20.822 Contact with and (suspected) exposure to COVID-19
CPT/HCPCS: 36415; 71045; 80053; 84702; 85025; 99284; J2765; J7121; U0002

== ENCOUNTER 2022-03-20 13:44 | Emergency (ER) | payer SELFPAY ==
[~2022-03-20] VITALS: Ht 175.3 cm; Wt 72.6 kg
[2022-03-20 14:38] LABS: BASOPHILS # (AUTO) 0.1 (0.0-0.1); BASOPHILS % 0.4 % (0.0-1.0); EOSINOPHILS # (AUTO) 0.1 (0.0-0.4); EOSINOPHILS % 0.5 % (0.0-6.0); HEMOGLOBIN 13.8 g/dL (12.0-16.0); LYMPHOCYTES # (AUTO) 2.9 (1.0-3.2); LYMPHOCYTES % 23.6 % (18.0-39.1); MEAN CORPUSCULAR HEMOGLOBIN 30.2 pg (28-32); MEAN CORPUSCULAR HGB CONC 33.7 g/dL (31-35); MEAN CORPUSCULAR VOLUME 89.7 fL (81-99); MONOCYTES % 8.1 % (4.4-11.3); NEUTROPHILS # (AUTO) 8.2 (2.1-6.9); PLATELET COUNT 277 x10e3/uL (140-360); RED BLOOD COUNT 4.57 x10e6/uL (3.6-5.1); RED CELL DISTRIBUTION WIDTH 11.9 % (11.7-14.4)
[2022-03-20 14:56] LABS: ALBUMIN 3.9 g/dL (3.5-5.0); ALBUMIN/GLOBULIN RATIO 1.1 (0.8-2.0); ANION GAP 13.8 mmol/L (8-16); CALCIUM 9.5 mg/dL (8.4-10.2); CREATININE, SERUM 0.83 mg/dL (0.57-1.11); POTASSIUM 3.8 mmol/L (3.5-5.1)
[2022-03-20 15:30] LABS: CLARITY,URINE CLEAR (CLEAR); COLOR,URINE YELLOW (YELLOW); KETONES,URINE NEGATIVE (NEGATIVE); LEUKOCYTE ESTERASE ,URINE NEGATIVE (NEGATIVE); NITRITE,URINE NEGATIVE (NEGATIVE); PROTEIN,URINE DIPSTICK NEGATIVE (NEGATIVE); URINE UROBILINOGEN 0.2 mg/dL (0.2 - 1)
[2022-03-20 15:43] LABS: AMORPHOUS SEDIMENT,URINE MODERATE (FEW); BACTERIA,URINE FEW /HPF
== END 2022-03-20 16:20 | disposition home or self-care (01) ==
LOC: ER 14:00
DX: O20.9 Hemorrhage in early pregnancy, unspecified (principal); R10.30 Lower abdominal pain, unspecified; M06.9 Rheumatoid arthritis, unspecified; J45.909 Unspecified asthma, uncomplicated
CPT/HCPCS: 36415; 76801; 76817; 80053; 81001; 84702; 85025; 86900; 99284

== ENCOUNTER 2022-05-03 13:12 | Emergency (ER) | payer MEDICARE ==
[~2022-05-03] VITALS: Ht 175.3 cm; Wt 72.6 kg
[2022-05-03] MEDS ORDERED: SODIUM CHLORIDE 0.9% 1000ML 1,000 ML IV STA (14:24)
[2022-05-03] MEDS ORDERED: PROMETHAZINE 25MG/ NS 50ML (IV) IV ONE (14:30)
[2022-05-03 14:49] LABS: BASOPHILS % 0.2 % (0.0-1.0); EOSINOPHILS # (AUTO) 0.1 (0.0-0.4); HEMATOCRIT 38.1 % (34.2-44.1); HEMOGLOBIN 13.1 g/dL (12.0-16.0); LYMPHOCYTES # (AUTO) 2.4 (1.0-3.2); LYMPHOCYTES % 23.3 % (18.0-39.1); MEAN CORPUSCULAR HEMOGLOBIN 30.5 pg (28-32); MEAN CORPUSCULAR HGB CONC 34.4 g/dL (31-35); MEAN CORPUSCULAR VOLUME 88.6 fL (81-99); MONOCYTES % 9.4 % (4.4-11.3); NEUTROPHILS # (AUTO) 6.8 (2.1-6.9); NEUTROPHILS % 65.8 % (38.7-80.0); PLATELET COUNT 251 x10e3/uL (140-360); RED CELL DISTRIBUTION WIDTH 12.6 % (11.7-14.4)
[2022-05-03 15:18] LABS: ALBUMIN 3.4 g/dL (3.5-5.0); ALBUMIN/GLOBULIN RATIO 0.9 (0.8-2.0); ANION GAP 15.1 mmol/L (8-16); CALCIUM 8.9 mg/dL (8.4-10.2); CREATININE, SERUM 0.7 mg/dL (0.57-1.11); POTASSIUM 4.1 mmol/L (3.5-5.1)
[2022-05-03 15:41] LABS: HCG,QUANTITATIVE 61721.19 mIU/mL (0-10)
[2022-05-03 15:44] LABS: CLARITY,URINE SL CLOUDY (CLEAR); COLOR,URINE YELLOW (YELLOW); KETONES,URINE NEGATIVE (NEGATIVE); LEUKOCYTE ESTERASE ,URINE 1+ (NEGATIVE); NITRITE,URINE NEGATIVE (NEGATIVE); PROTEIN,URINE DIPSTICK NEGATIVE (NEGATIVE); URINE UROBILINOGEN 0.2 mg/dL (0.2 - 1)
[2022-05-03 16:14] LABS: WBC,URINE (MAN) >50 /HPF (0-5)
[2022-05-03 16:16] LABS: BACTERIA,URINE MODERATE /HPF
[2022-05-03 16:17] LABS: EPITHELIAL CELLS,URINE MODERATE /LPF; TRICHOMONAS,URINE MANY
[2022-05-03 18:00] VITALS: BP 124/78
[2022-05-03] MEDS ORDERED: AZITHROMYCIN 250 MG TAB PO ONE (18:00)
== END 2022-05-03 18:01 | disposition home or self-care (01) ==
LOC: ER 13:30
DX: O23.41 Unspecified infection of urinary tract in pregnancy, first trimester (principal); N39.0 Urinary tract infection, site not specified; A59.9 Trichomoniasis, unspecified; M06.9 Rheumatoid arthritis, unspecified; J45.909 Unspecified asthma, uncomplicated; F41.9 Anxiety disorder, unspecified
CPT/HCPCS: 36415; 76815; 80053; 81001; 84702; 85025; 87086; 99283; J0696; J2550; J7030

== ENCOUNTER 2023-03-21 18:00 | Emergency (ER) | payer OTHER ==
[~2023-03-21] VITALS: Ht 172.7 cm; Wt 77.1 kg
[2023-03-21] MEDS ORDERED: ONDANSETRON HCL INJ 2MG/ML 2ML 2 MG/ML VIAL IV STA (18:37)
[2023-03-21] MEDS ORDERED: FAMOTIDINE 20 MG/2 ML VIAL IV ONE (18:40)
[2023-03-21] MEDS ORDERED: SODIUM CHLORIDE 0.9% 1000ML 1,000 ML ONE (18:40)
[2023-03-21] MEDS ORDERED: ONDANSETRON HCL INJ 2MG/ML 2ML 2 MG/ML VIAL ONE (18:40)
[2023-03-21] MEDS ORDERED: SODIUM CHLORIDE 0.9% 1000ML 1,000 ML IV ONE (18:45)
[2023-03-21] MEDS ORDERED: KETOROLAC TROMETHAMINE 30 MG/ML VIAL IV STA (18:58)
[2023-03-21 20:30] VITALS: O2SAT 98
[2023-03-21] MEDS ORDERED: ONDANSETRON ODT4 MG PO (20:41)
[2023-03-21] MEDS ORDERED: DICYCLOMINE HCL20 MG PO (20:42)
[2023-03-21] MEDS ORDERED: HYDROCORTISONE25 MG PR (20:50)
[2023-03-21] MEDS ORDERED: ANALPRAM HC 2.530 GM PR (20:52)
[2023-03-22] MEDS ORDERED: FAMOTIDINE 20 MG/2 ML VIAL IV SCH (09:00)
== END 2023-03-21 21:05 | disposition home or self-care (01) ==
LOC: FSED 18:15
DX: R14.0 Abdominal distension (gaseous) (principal); K62.5 Hemorrhage of anus and rectum; K64.9 Unspecified hemorrhoids; R11.0 Nausea; M06.9 Rheumatoid arthritis, unspecified; J45.909 Unspecified asthma, uncomplicated; F41.9 Anxiety disorder, unspecified; Z87.19 Personal history of other diseases of the digestive system
CPT/HCPCS: 74176; 80048; 80076; 81003; 81025; 85025; 96374; 96376; 99284; J1885; J2405; J7030

== ENCOUNTER 2024-02-02 10:27 | Emergency (ER) | payer BC ==
[~2024-02-02] VITALS: Ht 172.7 cm; Wt 79.8 kg
[~2024-02-02 10:27] MED LIST changes: +ANALPRAM HC 2.530 GM PR; +DICYCLOMINE HCL20 MG PO; +ESGIC 50-325-41 EACH PO; +FIORICET 50-301 EACH PO; +HYDROCORTISONE25 MG PR; +ULTRAM 50MG50 MG PO
[2024-02-02 10:58] LABS: BASOPHILS % 0.5 % (0.0-1.0); EOSINOPHILS # (AUTO) 0.1 (0.0-0.4); EOSINOPHILS % 1.7 % (0.0-6.0); HEMOGLOBIN 14.5 g/dL (12.0-16.0); LYMPHOCYTES # (AUTO) 2.4 (1.0-3.2); LYMPHOCYTES % 35.9 % (18.0-39.1); MEAN CORPUSCULAR HEMOGLOBIN 30.5 pg (28-32); MEAN CORPUSCULAR HGB CONC 34.5 g/dL (31-35); MEAN CORPUSCULAR VOLUME 88.2 fL (81-99); MONOCYTES # (AUTO) 0.6 (0.2-0.8); MONOCYTES % 9.2 % (4.4-11.3); NEUTROPHILS # (AUTO) 3.5 (2.1-6.9); NEUTROPHILS % 52.4 % (38.7-80.0); PLATELET COUNT 225 x10e3/uL (140-360); RED BLOOD COUNT 4.76 x10e6/uL (3.6-5.1); RED CELL DISTRIBUTION WIDTH 12.2 % (11.7-14.4); WHITE BLOOD COUNT 6.63 x10e3/uL (4.8-10.8)
[2024-02-02] MEDS: SODIUM CHLORIDE 0.9% 1000ML 1,000 ML IV ONE (11:03)
[2024-02-02] MEDS: KETOROLAC TROMETHAMINE 30 MG/ML VIAL IV STA (11:04)
[2024-02-02 11:25] LABS: BILIRUBIN,URINE NEGATIVE (NEGATIVE); CLARITY,URINE CLEAR (CLEAR); COLOR,URINE YELLOW (YELLOW); GLUCOSE, URINE NEGATIVE (NEGATIVE); KETONES,URINE NEGATIVE (NEGATIVE); LEUKOCYTE ESTERASE ,URINE MODERATE (NEGATIVE); NITRITE,URINE NEGATIVE (NEGATIVE); PH,URINE 7.5 (5 - 7); PROTEIN,URINE DIPSTICK NEGATIVE (NEGATIVE); URINE UROBILINOGEN 0.2 mg/dL (0.2 - 1)
[2024-02-02 11:52] LABS: BACTERIA,URINE FEW /HPF; EPITHELIAL CELLS,URINE MODERATE /LPF
[2024-02-02 12:16] LABS: INR 0.89; PARTIAL THROMBOPLASTIN TIME 30.7 seconds (23.8-35.5); PROTHROMBIN TIME 12.7 seconds (11.9-14.5)
[2024-02-02 12:32] LABS: ALBUMIN/GLOBULIN RATIO 1.4 (0.8-2.0); ANION GAP 12.6 mmol/L (8-16); BILIRUBIN,TOTAL 0.4 mg/dL (0.2-1.2); CALCIUM 8.8 mg/dL (8.4-10.2); CREATININE, SERUM 0.92 mg/dL (0.57-1.11); POTASSIUM 3.6 mmol/L (3.5-5.1); TOTAL PROTEIN 6.9 g/dL (6.5-8.1)
[2024-02-02] MEDS ORDERED: ONDANSETRON HCL INJ 2MG/ML 2ML 2 MG/ML VIAL IV STA (12:59)
[2024-02-02] MEDS: ONDANSETRON HCL INJ 2MG/ML 2ML 2 MG/ML VIAL IV STA (13:10)
[2024-02-02] MEDS ORDERED: AZITHROMYCIN IV ONE (13:30)
[2024-02-02] MEDS ORDERED: SODIUM CHLORIDE 0.9% IV ONE (13:30)
[2024-02-02] MEDS: TRAMADOL HCL 50 MG TAB PO ONE (14:21)
[2024-02-02] MEDS ORDERED: LIDOCAINE HCL 1% 2 ML AMP ONE (14:35)
[2024-02-02] MEDS: CEFTRIAXONE 500 MG VIAL IM ONE (15:18)
[2024-02-02] MEDS ORDERED: DOXYCYCLINE HY100 MG PO (15:23)
[2024-02-02 15:59] VITALS: BP 131/67; PULSE 78; RESP 16; O2SAT 100
[2024-02-02] MEDS: DOXYCYCLINE HYCLATE TABLET 100 MG TAB PO ONE (15:59)
== END 2024-02-02 16:08 | disposition home or self-care (01) ==
LOC: ER 10:32
DX: R10.2 Pelvic and perineal pain (principal); N73.9 Female pelvic inflammatory disease, unspecified; J45.909 Unspecified asthma, uncomplicated; M06.9 Rheumatoid arthritis, unspecified; F41.9 Anxiety disorder, unspecified; F17.210 Nicotine dependence, cigarettes, uncomplicated; Z87.19 Personal history of other diseases of the digestive system
CPT/HCPCS: 36415; 76830; 76856; 80053; 81001; 83690; 84702; 85025; 85610; 85730; 87210; 87491; 87591; 99284; J0696; J1885; J2001; J2405; J7030